=== PATIENT | male | born 1990 | race African-American/Black ===

== ENCOUNTER 2016-12-18 12:52 | Emergency (ER) | payer OTHER ==
[~2016-12-18] VITALS: Ht 172.7 cm; Wt 81.6 kg
--- NOTE | 2016-12-18 13:05 | NUR ---
DR MIGUEL AT THE BEDSIDE FOR EVAL AND EXAM.
[2016-12-18] MEDS ORDERED: HYDROCODONE/APAP 5-325MG TABLET PO ONE (13:15)
[2016-12-18 13:19] VITALS: BP 144/80
--- NOTE | 2016-12-18 13:20 | NUR ---
Patient discharged to home in stable conditon. Written and verbal after care instructions given. Patient verbalizes understanding of instructions.
[2016-12-18] MEDS ORDERED: HYDROCODONE/APAP 5-325MG TABLET ONE (13:23)
== END 2016-12-18 13:20 | disposition home or self-care (01) ==
LOC: ER 12:52
DX: S39.012A Strain of muscle, fascia and tendon of lower back, initial encounter (principal); I10 Essential (primary) hypertension; Z91.040 Latex allergy status; X58.XXXA Exposure to other specified factors, initial encounter; Y93.89 Activity, other specified; Y99.8 Other external cause status; Y92.89 Other specified places as the place of occurrence of the external cause
CPT/HCPCS: A4663

== ENCOUNTER 2016-12-30 18:37 | Emergency (ER) | payer OTHER ==
[~2016-12-30] VITALS: Ht 172.7 cm; Wt 95.3 kg
--- NOTE | 2016-12-30 19:04 | NUR ---
Pt evaluated by MD in room 5A for allergic reaction on BUE. A/O x 4, nad noted, vss. Patient discharged home in stable conditon. Written and verbal after care instructions given. Patient verbalizes understanding of instructions.
[2016-12-30 19:06] VITALS: BP 132/74
== END 2016-12-30 19:06 | disposition home or self-care (01) ==
LOC: ER 18:37
DX: R21 Rash and other nonspecific skin eruption (principal); T50.905A Adverse effect of unspecified drugs, medicaments and biological substances, initial encounter; I10 Essential (primary) hypertension; Z91.040 Latex allergy status; Y92.89 Other specified places as the place of occurrence of the external cause
CPT/HCPCS: A4663

== ENCOUNTER 2017-03-04 14:33 | Emergency (ER) | payer OTHER ==
[~2017-03-04] VITALS: Ht 152.4 cm; Wt 83.9 kg
--- NOTE | 2017-03-04 15:03 | NUR ---
Bupivacaine vial handed to MD for use during the dental block procedure.
[2017-03-04] MEDS ORDERED: BUPIVACAINE PF 0.5% 30 ML VIAL ONE (15:11)
[2017-03-04] MEDS ORDERED: BUPIVACAINE PF 0.5% 30 ML VIAL TP ONE (15:30)
--- NOTE | 2017-03-04 15:34 | NUR ---
Patient discharged to home in stable conditon. Written and verbal after care instructions given to patient. Patient verbalizes understanding of instructions.Patient expressed decreased dental pains at this time.
== END 2017-03-04 15:35 | disposition home or self-care (01) ==
LOC: ER 14:33
DX: K03.81 Cracked tooth (principal); K04.01 Reversible pulpitis; I10 Essential (primary) hypertension; Z91.040 Latex allergy status
CPT/HCPCS: A4663; J3490

== ENCOUNTER 2017-07-28 15:15 | Emergency (ER) | payer OTHER ==
[~2017-07-28] VITALS: Ht 172.7 cm; Wt 90.7 kg
[2017-07-28] MEDS ORDERED: predniSONE 20 MG TABLET PO ONE (16:30)
--- NOTE | 2017-07-28 16:41 | NUR ---
Patient discharged to home in stable conditon. Written and verbal after care instructions given. Patient verbalizes understanding of instructions. Stressed follow up or return to ER for worsening s/s.
[2017-07-28] MEDS ORDERED: predniSONE 50 MG TABLET ONE (17:00)
[2017-07-28] MEDS ORDERED: predniSONE 10 MG TABLET ONE (17:00)
== END 2017-07-28 16:53 | disposition home or self-care (01) ==
LOC: ER 15:16
DX: J45.909 Unspecified asthma, uncomplicated (principal); M72.2 Plantar fascial fibromatosis; I10 Essential (primary) hypertension; Z91.040 Latex allergy status
CPT/HCPCS: A4663; J7512

== ENCOUNTER 2017-12-18 13:24 | Emergency (ER) | payer OTHER ==
[~2017-12-18] VITALS: Ht 172.7 cm; Wt 93.0 kg
[2017-12-18] MEDS ORDERED: HYDROCODONE/APAP 10-325 MG TABLET PO ONE (14:00)
[2017-12-18] MEDS ORDERED: DIAZEPAM 2 MG TABLET PO ONE (14:00)
[2017-12-18] MEDS ORDERED: HYDROCODONE/APAP 10-325 MG TABLET ONE (14:02)
[2017-12-18] MEDS ORDERED: DIAZEPAM 5 MG TABLET ONE (14:02)
--- NOTE | 2017-12-18 14:03 | NUR ---
PATIENT WAS SEEN BY MD FOR C/O PAIN. MEDICATION GIVEN ORDERED. INSTRUCTIONS REGARDING SIDE EFFECTS OF BOTH VALIUM AND NORCO GIVEN. PATIENT STATES HE WILL NOT DRIVE AND IS TAKING A BUS TO [place].
--- NOTE | 2017-12-18 14:13 | NUR ---
DC, RX AND FOLLOW UP INSTRUCTIONS GIVEN AND EXPLAINED TO PATIENT WHO STATES SHE UNDERSTANDS ALL INSTRUCTIONS INVLUDING BENZO AND NARCOTIC PRECAUTIONS AND DANGERS.
== END 2017-12-18 14:19 | disposition home or self-care (01) ==
LOC: ER 13:28
DX: S39.012A Strain of muscle, fascia and tendon of lower back, initial encounter (principal); I10 Essential (primary) hypertension; Z91.040 Latex allergy status; X58.XXXA Exposure to other specified factors, initial encounter; Y93.89 Activity, other specified; Y92.89 Other specified places as the place of occurrence of the external cause; Y99.8 Other external cause status
CPT/HCPCS: A4663